=== PATIENT | male | born 2000 | race Asian ===

== ENCOUNTER 2023-07-21 12:32 | Emergency (ER) | payer OTHER, SELFPAY ==
[2023-07-21 12:34] VITALS: TEMP 36.6; BMI 23.8
--- NOTE | 2023-07-21 12:42 | EX.ED.DYSGE1 ---
HPI History of Present Illness Chief Complaint: Allergic Reaction Detail of Chief Complaint: Allergic reaction Informant: patient Narrative Narrative: Patient presents to the emergency department complaint of a possible allergic reaction to peanuts. Patient states that he ate some coleslaw did not realize and there were peanuts in it about a half an hour ago. Patient describes a slight tickle in his throat. In the past when has been exposed to peanuts and about a hour he starts having trouble breathing. He denies any rashes. He did not give himself the EpiPen. He denies difficulty breathing currently. PFSH PFSH Home Medications epinephrine 0.3 mg/0.3 mL injection, auto-injector (EpiPen) 0.3 mg (0.3 mL) IM Q4H PRN anaphylaxis #2 ea 07/21/23 [Rx Last Taken Unknown] prednisone 20 mg tablet 20 mg PO BID #6 tabs 07/21/23 [Rx Last Taken Unknown] Allergy/AdvReac Type Severity Reaction Status Date / Time peanut Allergy Severe Anaphylaxis Verified 07/21/23 12:33 Social History Smoking Status: Never smoker ROS ROS ED ROS Narrative Allergic reaction Review of Systems ROS Unobtainable: other Constitutional Constitutional ED: Reports lethargy; Denies chills, fever(s), sweats or weight loss Eyes Eyes: Denies blurry vision, change in vision or diplopia ENT ENT ED: Reports other Details: Throat discomfort ; Denies rhinorrhea or sore throat Cardiovascular Cardiovascular: Denies chest pain, orthopnea or racing heartbeat Respiratory/Chest Respiratory/Chest: Denies cough, dyspnea, dyspnea on exertion, orthopnea or sputum Gastrointestinal Gastrointestinal: Denies abdominal pain, diarrhea, nausea or vomiting Genitourinary Genitourinary ED: Denies dysuria, hematuria or urinary frequency Musculoskeletal Musculoskeletal: Denies arthralgias, back pain, myalgias or neck pain Integumentary Denies abscess, Abrasions or rash Neurologic Neurologic: Denies headache(s) or weakness Psychiatric Psychiatric: Denies anxiety, depression or suicidal thoughts Endocrine Endocrinology: Denies polydipsia, polyphagia or polyuria Hematologic/Lymphatic Hematologic/Lymphatic: Denies easy bleeding, easy bruising or lymphadenopathy Allergic/Immunologic Allergic/Immunologic ED: Denies mouth swelling, tongue swelling or urticaria EXAM Physical Exam Const Vital Signs: 07/21/23 12:34 07/21/23 13:32 07/21/23 14:00 Temperature 97.9 F Temperature Source Temporal Pulse Rate 80 87 Respiratory Rate 15 15 Blood Pressure 117/72 116/73 Blood Pressure Mean 87 87 Pulse Ox 100 99 Oxygen Delivery Method Room Air Room Air Positive well nourished and well developed General Appearance ED: well developed and NAD HEENT Reports TM's clear and moist mucous membranes normocephalic and atraumatic; Negative for trauma or tenderness Tympanic Membrane ED: Yes TM's clear Eyes PERRL and EOMs intact bilaterally General Eye ED: Negative for pale conjunctiva or scleral icterus Neck no lymphadenopathy, supple and no JVD General: Negative for tenderness Chest Wall inspection of chest normal and palpation of chest normal Chest: Negative for tenderness Resp normal respiratory effort and clear to auscultation bilaterally Effort and Inspection: Negative for respiratory distress or pain with movement Auscultation: Negative for rhonchi, wheezes or diminished lung sounds Cardio regular rate, regular rhythm, S1 normal heart sound, S2 normal heart sound and no murmurs Peripheral Pulses: pulses 2+ throughout GI normal to inspection, nondistended, normoactive bowel sounds, soft to palpation, non-tender, non-distended and no masses Back/Spine no CVA tenderness and no thoracic nor lumbar tenderness Extremity normal to inspection General Extremety ED: Negative for edema General Extremity: Negative for edema Neuro oriented x3, CN's II-XII intact bilaterally, no sensory deficits noted and gait normal Sensorium / Orientation: awake, alert, oriented to person, oriented to place and oriented to time Motor Exam: strength 5/5 throughout and strength abnormal Psych mental status grossly normal Skin no rashes or lesions noted and no wounds MDM MDM MDM Narrative Medical decision making narrative: Patient presents with allergic reaction to peanuts. Clinically looks well on arrival. Patient had taken 50 mg of Benadryl prior to coming in. I did order Pepcid 40 mg IV and Solu-Medrol 125 mg IV. He will be observed for 4 hours. Multiple repeat examinations appears him to be in stable condition without any worsening of symptoms. At this point he has been here most 2-1/2 hours. Will turn patient over to evening physician awaiting for observation. And I will write him for EpiPen as his is . We will send him home with prednisone for 3 days as well. Once he meets his observation. He can be discharged to home. Discharge Plan Triage Chief Complaint: Allergic Reaction ED Provider: Tc Olsen Dx/Rx/DC Orders Clinical Impression: Allergic reaction to peanut Instructions: ED Allergic Reaction Local Other, ED Food Allergy Prescriptions: New epinephrine [EpiPen] 0.3 mg/0.3 mL auto-injector 0.3 mg IM Q4H PRN (Reason: anaphylaxis) Qty: 2 0RF prednisone 20 mg tablet 20 mg PO BID Qty: 6 0RF Primary Care Provider: PHANI BENTON Referrals: NOT,DEFINED [Non-Staff] - Disposition Disposition: Home, Self Care
[2023-07-21] MEDS: MethylPREDNISolone 125 MG/2 ML Vial IV (12:49)
[2023-07-21] MEDS: Famotidine 200 MG/20 ML MDV 40 MG in 0.9% Normal Saline (Pres. free 6 ML 300 MG IV (13:22)
[2023-07-21 13:32] VITALS: BP 117/72; PULSE 80; RESP 15; O2SAT 100
[2023-07-21 14:00] VITALS: BP 116/73; PULSE 87; RESP 15; O2SAT 99
[2023-07-21 15:00] VITALS: BP 117/80; PULSE 84; RESP 14; O2SAT 100
[2023-07-21 16:00] VITALS: BP 129/90; PULSE 74; RESP 16; O2SAT 99
[2023-07-21 16:20] VITALS: BP 128/68; PULSE 88; RESP 14; TEMP 36.6; O2SAT 99
== END 2023-07-21 16:21 | disposition home or self-care (01) ==
PROVIDERS: Emergency Provider Emergency Medicine; Visit Provider Emergency Medicine
DX: T78.1XXA Other adverse food reactions, not elsewhere classified, initial encounter (principal)
CPT/HCPCS: 96374; 96375; 99283; A4216; J3490